=== PATIENT | female | born 1980 | race Caucasian/White ===

== ENCOUNTER → 2024-04-13 11:09 | Outpatient (REF) | payer OTHER, SELFPAY | LOC: PAVMRI 11:09 | PROVIDERS: ATTENDING PHYSICIAN Psychiatry & Neurology Neurology | DX: G43.011 Migraine without aura, intractable, with status migrainosus (principal) | CPT/HCPCS: 70553; A9575 ==

== ENCOUNTER → 2025-05-04 07:45 | Outpatient (REF) | payer OTHER, SELFPAY | LOC: HWRAD 07:45 | PROVIDERS: ATTENDING PHYSICIAN Nurse Practitioner Family; PRIMARYCARE PHYSICIAN Family Medicine | DX: N92.1 Excessive and frequent menstruation with irregular cycle (principal) | CPT/HCPCS: 76830; 76856 ==